=== PATIENT | female | born 1960 | race Caucasian/White ===

== ENCOUNTER 2022-08-07 22:13 | Emergency (ER) | payer OTHER, SELFPAY ==
--- NOTE | ~2022-08-07 | XR_ITS ---
EXAMINATION: XR forearm LT 2V DATE: 08/07/2022 22:54 INDICATION: Left forearm injury. TECHNIQUE: 2 views of left forearm were obtained. COMPARISON: Left wrist radiographs 03/28/2010 FINDINGS: Bone alignment is normal. No fracture. There is sclerosis in lunate. There is mild elbow mk int osteoarthritis. There is severe osteoarthritis of first carpometacarpal joint. No elbow joint eff usion. There is a laceration of the medial forearm. There is a 2 mm density in the area of the lacera tion. IMPRESSION: 1. Polyarticular osteoarthritis. 2. Laceration of the medial forearm. A 2 mm density in this area may be a foreign body or dystrophic calcification. 3. 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 Reviewed, dictated and finalized at location E. IMPRESSION: 1. Polyarticular osteoarthritis. 2. Laceration of the medial forearm. A 2 mm density in this area may be a forei gn body or dystrophic calcification. 3. 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
--- NOTE | ~2022-08-07 | XR_ITS ---
EXAMINATION: XR elbow LT min 3V DATE: 08/07/2022 22:54 INDICATION: Left elbow pain. Fall. TECHNIQUE: 4 views of left elbow were obtained. COMPARISON: None. FINDINGS: Bone alignment is normal. No fracture. There is mild elbow joint osteoarthritis. No elbow j oint effusion. There is a laceration of the medial forearm. IMPRESSION: 1. Mild elbow joint osteoarthritis. Reviewed, dictated and finalized at location E.
[2022-08-07 22:28] VITALS: BP 124/70; PULSE 77; RESP 20; TEMP 36.5; O2SAT 97
[2022-08-08 02:16] VITALS: BP 103/65; O2SAT 98
[2022-08-08 02:31] VITALS: BP 100/58; O2SAT 99
[2022-08-08 02:46] VITALS: BP 98/57; O2SAT 99
[2022-08-08 03:31] VITALS: BP 101/70; O2SAT 94
[2022-08-08 04:01] VITALS: BP 107/59; O2SAT 96
--- NOTE | 2022-08-08 05:40 | ED.WOUNDLAC ---
HPI - Wound/Laceration General Chief Complaint: Wound/Laceration Stated Complaint: fall, lac to left arm Time Seen by Provider: 08/08/22 02:40 History of Present Illness HPI narrative: This is a 61-year-old female, who presents to the emergency department with a laceration to the left posterior arm. The patient states she fell down 2 stairs landing on her elbow. She denies head injury or loss of consciousness. She complains of 6/10 pain to the posterior arm. Related Data Allergies Allergy/AdvReac Type Severity Reaction Status Date / Time Sulfa (Sulfonamide Allergy Mild Verified 03/13/16 17:47 Antibiotics) Review of Systems Review of Systems: CONSTITUTIONAL: Denies fever, chills, or sweats. CARDIOVASCULAR: Denies chest pain, palpitations, or edema. RESPIRATORY: Denies cough or dyspnea. GASTROINTESTINAL: Denies abdominal pain, nausea, vomiting, or diarrhea. GENITOURINARY: Denies dysuria or hematuria. SKIN: Laceration of the left forearm. Denies rash or itching. MUSCULOSKELETAL: Left arm pain, Denies back pain, joint pain, or myalgia. NEUROLOGIC: Denies headache numbness, dizziness, or weakness. PSYCHIATRIC: Denies anxiety or depression. [facility] Social History Social History (Updated 08/08/22 @ 21:28 by Humberto Ware MD) Smoking status: Never smoker Alcohol intake: current Drinks per week: 1 Substance use: never Exam Narrative: GENERAL: Well-developed, well-nourished, and in no acute distress. HEAD: Normocephalic, atraumatic. EYES: PERRLA and EOMI. NECK: Supple. No adenopathy or masses. No carotid bruits or JVD CHEST: Clear to auscultation. No respiratory distress. No wheezes rales or rhonchi HEART: Regular rate and rhythm. No murmur heard. Normal peripheral pulses. ABDOMEN: Soft, nontender, nondistended, normal active bowel sounds. EXTREMITIES: A V shaped laceration with each arm measuring 6cm is noted at the posterior aspect of the left forearm, just distal to the elbow. The laceration involves the subcutaneous tissue. There is no exposed bone or obvious retained foreign object. Normal range of motion. No edema. SKIN: Warm, dry, no rash. NEURO: No focal deficits. Alert and oriented x3. Strength 5/5 in all extremities, sensation intact bilaterally PSYCH: Normal mood and affect. Course Course Emergency Course: 05:40 - Xrays not concerning for fracture. A 2mm object was seen on xray that could be retained foreign object. No obvious abnormalities were seen during wound exploration and washout. Laceration repaired. Please see procedure note. Discussed wound care as well as return and emergency precautions including signs/symptoms of wound infection. The patient voiced understanding and is comfortable with the plan. All questions answered to her satisfaction. Vital Signs Vital signs: Vital Signs Temperature 97.7 F 08/07/22 22:28 Pulse Rate 77 08/07/22 22:28 Respiratory Rate 20 08/07/22 22:28 Blood Pressure 124/70 08/07/22 22:28 Pulse Oximetry 97 08/07/22 22:28 Oxygen Delivery Room Air 08/07/22 22:28 Temperature 97.7 F 08/07/22 22:28 Pulse Rate 77 08/07/22 22:28 Respiratory Rate 20 08/07/22 22:28 Blood Pressure 107/59 L 08/08/22 04:01 Pulse Oximetry 96 08/08/22 04:01 Oxygen Delivery Room Air 08/07/22 22:28 Procedures Laceration Laceration 1: Date: 08/08/22 Time: 05:30 Site: upper extremity Side (If applicable): left Size (cm): 10 Description: linear, flap and clean Depth: involves muscle layer Local Anesthetic: lidocaine 1% Amount of anesthesia used (mL): 10 Pre-repair: wound explored, irrigated and irrigated extensively ====== Skin Level ====== Skin layer closed with: prolene Size (cm): 4-0 Number of sutures: 11 Technique: simple, interrupted ====== Subcutaneous Layer ====== Subcutaneous layer closed with: vicryl Size:
== END 2022-08-08 05:54 | disposition home or self-care (01) ==
PROVIDERS: Emergency Provider Preventive Medicine Aerospace Medicine; PCP Physician Assistant
DX: S51.812A Laceration without foreign body of left forearm, initial encounter (principal); W10.9XXA Fall (on) (from) unspecified stairs and steps, initial encounter
CPT/HCPCS: 12015; 12034; 73080; 73090; 99283